=== PATIENT | male | born 1995 | race Caucasian/White ===

== ENCOUNTER 2017-10-21 21:41 | Emergency (ER) | payer MEDICAID ==
[~2017-10-21] VITALS: Ht 182.9 cm; Wt 70.3 kg
[2017-10-21 21:45] VITALS: BP_SYST 121
--- NOTE | 2017-10-21 21:45 | NUR ---
Placed in room 06 . Placed on athletic monitor, blood pressure machine and pulse oximeter. To gown for exam. Side rails up. Report given to CHERELLE Alonzo.
--- NOTE | 2017-10-21 21:50 | NUR ---
Patient to ER via EMT ambulance, patient sent from [facility] for medical clearance. 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 Patient reports thathe was at [facility] to get assistance with Detox. Patient denies pain/sob at present, patient able to ambulate from ambulance gurney to ER bed 6 without difficulty. Patient is awake, alert and oriented in no acute distress, vital signs stable-with elevated heart rate noted, respirations even and unlabored, skin warm and dry to touch. Awaiting evaluation by ER MD, will continue to observe and assess.
--- NOTE | 2017-10-21 21:55 | NUR ---
Dr Boyle at bedside to evaluate patient.
--- NOTE | 2017-10-21 22:00 | NUR ---
Received call from Philippe bradley RN. Patient needs medical evaluation and medical clearance before returning for treatment.
[2017-10-21 22:18] LABS: BASOPHILS # (AUTO) 0.1 K/uL (0.0-0.2); BASOPHILS % (AUTO) 0.5 % (0.0-2.0); EOSINOPHILS % (AUTO) 0.3 % (0.0-4.0); HEMATOCRIT 41.7 % (36-54); LYMPHOCYTES # (AUTO) 1.3 K/uL (1.0-5.5); LYMPHOCYTES % (AUTO) 11.3 % (20.5-51.5); MEAN CORPUSCULAR HEMOGLOBIN 31 pg (27-31); MEAN CORPUSCULAR HGB CONC 33 % (32-36); MEAN CORPUSCULAR VOLUME 92 fL (79.0-98.0); NEUTROPHILS # (AUTO) 9.1 K/uL (1.8-7.7); NEUTROPHILS % (AUTO) 78.9 % (40.0-70.0); PLATELET COUNT (AUTO) 246 K/uL (130-430); RED BLOOD CELL COUNT(AUTO) 4.52 MIL/uL (4.2-6.2); RED CELL DISTRIBUTION WIDTH 12.1 % (9.0-15.0); WHITE BLOOD COUNT (AUTO) 11.5 K/uL (4.5-11.0)
[2017-10-21 22:20] LABS: ANION GAP 11 (5-15); CALCIUM 9.3 mg/dL (8.4-11.0); CHLORIDE 89 mmol/L (98-107); CREATININE 1.05 mg/dL (0.55-1.30); GLUCOSE 73 mg/dL (70-99); POTASSIUM 3.8 mmol/L (3.5-5.1); SODIUM SERUM 127 mmol/L (136-145); UREA NITROGEN, BLOOD 20 mg/dL (8-21)
[2017-10-21 22:24] LABS: ALANINE AMINOTRANSFERASE 30 U/L (12-78); ALBUMIN 4.2 g/dL (3.4-4.8); ASPARTATE AMINOTRANSFERASE 65 U/L (10-37); TOTAL BILIRUBIN 1.4 mg/dL (0.0-1.0)
[2017-10-21 22:25] LABS: ACETAMINOPHEN < 1 ug/mL (1-30); ALCOHOL, BLOOD < 3 mg/dL (<10); GFR AFRICAN AMERICAN 116 mL/min (>90)
--- NOTE | 2017-10-21 22:29 | NUR ---
Assumed care of patient from [facility]
--- NOTE | 2017-10-21 23:00 | NUR ---
Patient resting quietly in no acute distress, vital signs stable, respirations even and unlabored, skin warm and dry to touch.
[2017-10-21 23:13] LABS: CANNABINOID, URINE POSITIVE (NEG <=50); COCAINE, URINE POSITIVE (NEG <=150); METHAMPHETAMINES SCREEN,URINE POSITIVE (NEG <=500); OPIATE, URINE POSITIVE (NEG <=100); URINE AMPHETAMINE POSITIVE (NEG <=500)
[2017-10-21 23:14] LABS: BARBITURATE, URINE NEGATIVE (NEG <=200); BENZODIAZEPINE, URINE NEGATIVE (NEG <=150); PHENCYCLIDINE SCREEN,URINE NEGATIVE (NEG <=25); UR TRICYCLIC ANTIDEPRESSANTS NEGATIVE (NEG <=300); URINE METHADONE NEGATIVE (NEG <=200); URINE OXYCODONE SCREEN NEGATIVE (NEG <=100); URINE PROPOXYPHENE SCREEN NEGATIVE (NEG <=300)
[2017-10-21] MEDS ORDERED: ONDANSETRON 4 MG ODT TAB PO ONE (23:30)
--- NOTE | 2017-10-22 | NUR ---
Assessment remains unchanged, awaiting transfer back to [facility]. ETA of transport team [id number].
--- NOTE | 2017-10-22 00:15 | NUR ---
Transport team here to transport patient back to [facility], [facility], [facility]ona Cache states that they are not expecting patient back and need to speak with their supervisor mail carriers.
--- NOTE | 2017-10-22 00:27 | NUR ---
[facility]a called back and states that they will accept the patient. deck scaler Janice spoke with [facility].
--- NOTE | 2017-10-22 00:28 | NUR ---
Spoke with Shavon at [facility]
[2017-10-22 00:30] VITALS: BP_SYST 110
--- NOTE | 2017-10-22 00:35 | NUR ---
Patient given written and verbal discharge instructions and verbalizes understanding. ER MD discussed with patient the results and treatment provided. Patient in stable condition. ID arm band removed. No RX given. Patient educated on pain management and to follow up with PMD. Pain Scale 0. Opportunity for questions provided and answered. Patient was sent to [facility] via [facility] ambulance in stable condition. No adverse reaction noted to medication.
== END 2017-10-22 00:30 ==
LOC: SED 21:41
DX: F15.10 Other stimulant abuse, uncomplicated (principal); F11.10 Opioid abuse, uncomplicated; F41.9 Anxiety disorder, unspecified; R03.0 Elevated blood-pressure reading, without diagnosis of hypertension
CPT/HCPCS: 36415; 80053; 80307; 85025; 93005; 99285; G0480; G0481; G0482; Q0162